=== PATIENT | male | born 1980 | race Caucasian/White ===

== ENCOUNTER 2016-07-09 14:30 | Emergency (ER) | payer OTHER ==
[2016-07-09 14:37] VITALS: TEMP 98.8
--- NOTE | 2016-07-09 16:11 | EDPHY ---
HPI/HX/ROS/PE/MDM Narrative: Chief complaint: Lip laceration HPI: 36-year-old male was snowboarding when he went into a tree and struck a tree branch with his face. He was wearing a helmet and gauze. There is no loss of consciousness. He sustained a laceration of his right upper lip. Denies any tooth pain or avulsion. Last tetanus was about 2 years ago. No neck pain. No chest pain. No extremity injury. ROS: 10 point Review of Systems is negative except as noted in the HPI. Physical exam: Gen: Awake, Alert, Airway Intact HEENT: Head: Atraumatic Eyes: PERRLA, EOMI Ears: No hemotympanum Nose: No epistaxis Mouth: Normal dentition, he has a 3 cm vertical laceration on his right upper lip which does cross the vermilion border. There is no gingival bleeding or tenderness. Laceration is not through and through. No frenulum injury. Face: No deformity Neck: non-tender, no stepoff, Full ROM without pain Chest: non-tender, lungs CTA Heart: normal heart tones Abd: soft, non-tender, atraumatic Pelvis: non-tender, stable to AP and Lateral compression Back: atraumatic, no midline tenderness Ext: atramatic, full ROM Skin: no rash Neuro: CN II-XII intact, Strength 5/5 in all extremities, sensation intact in all extremities ED Course: Procedure: Laceration repair. Verbal consent was obtained from the patient. The 3 cm laceration on the right upper lip, crossing the vermilion border was anesthetized in the usual fashion. The wound was irrigated, draped and explored to its base with a gloved finger. There were no deep structures involved. No tendon injury was identified. The wound was repaired with 9, 6-0 Ethilon simple interrupted sutures. The wound repair was uncomplicated. There was excellent alignment of the vermilion border. The procedure was performed by myself. General Time Seen by Provider: 07/09/16 14:42 Initial Vital Signs: Initial Vital Signs Temperature (C) 37.1 C 07/09/16 14:35 Heart Rate 90 07/09/16 14:35 Respiratory Rate 15 07/09/16 14:35 Blood Pressure 137/107 H 07/09/16 14:35 O2 Sat (%) 96 07/09/16 14:35 O2 Delivery Mode Room Air Allergies/Adverse Reactions: Penicillins Allergy (Verified 07/09/16 14:35) Home Medications: Medication Instructions Recorded NK [No Known Home Meds] 07/09/16 Departure - Departure Disposition: Home, Routine, Self-Care Clinical Impression: Laceration, Laceration of lip Condition: Good Instructions: Facial Laceration (ED) Additional Instructions: Sutures need to be removed in 5 days. Return to the emergency department for redness, opening or discharge from the wound, fevers, chills, headache, nausea, vomiting, or any other concerns. Follow up in the ED or primary care for suture removal. Referrals: Claudia Gonzalez MD [Medical Doctor] - As per Instructions
[2016-07-09 16:37] VITALS: BP 158/103; PULSE 68; RESP 16; O2SAT 95
== END 2016-07-09 16:38 | disposition home or self-care (01) ==
PROC: 0CQ0XZZ Repair Upper Lip, External Approach (ICD-10-PCS; principal; 2016-07-09)
DX: S01.511A Laceration without foreign body of lip, initial encounter (principal); W22.8XXA Striking against or struck by other objects, initial encounter; Y99.8 Other external cause status; Y93.23 Activity, snow (alpine) (downhill) skiing, snowboarding, sledding, tobogganing and snow tubing